=== PATIENT | male | born 1955 | race Two or more races ===

== ENCOUNTER → 2021-06-19 | Emergency (ER) | payer OTHER | END | disposition left against medical advice (07) | LOC: ER 13:35 | DX: R52 Pain, unspecified (principal); Z53.21 Procedure and treatment not carried out due to patient leaving prior to being seen by health care provider ==

== ENCOUNTER 2022-11-28 19:26 | Emergency (ER) | payer OTHER, MEDICAID ==
[~2022-11-28] VITALS: Ht 165.1 cm; Wt 62.0 kg
[2022-11-28 20:18] LABS: Basophils # (auto) 0.1 10 ^3/uL (0-0.2); Eosinophils # (auto) 0.2 10 ^3/uL (0-0.8); Eosinophils % (auto) 2.1 % (0.0-7.0); Hemoglobin 11.5 g/dL (13.5-17.5); Neutrophils # (auto) 4.6 10 ^3/uL (1.6-8.6)
[2022-11-28 20:20] LABS: Basophils % (auto) 1.3 % (0.0-2.0); Lymphocytes # (auto) 1.9 10 ^3/uL (0.4-5.4); Lymphocytes % (auto) 26.2 % (10.0-50.0); Mean Corpuscular Hemoglobin 27.3 pg (28.0-32.0); Mean Corpuscular Hgb Conc. 32.8 g/dL (32.0-36.0); Mean Corpuscular Volume 83.2 fL (80.0-100.0); Monocytes # (auto) 0.6 10 ^3/uL (0-1.3); Neutrophils % (auto) 62.4 % (37.0-80.0); Red Blood Cells 4.21 10^6/uL (4.5-5.90); Red Cell Distribution Width 16.8 % (11.8-14.3); White Blood Cell 7.4 10^3/uL (4.4-10.8)
[2022-11-28 20:38] LABS: Albumin 3.3 g/dL (3.4-5.0); Calcium 8.6 mg/dL (8.5-10.1); Potassium 4.3 mmol/L (3.5-5.1)
[2022-11-28 20:42] LABS: BUN/Creatinine Ratio 15.1 (10.0-20.0); Bilirubin, Total 0.4 mg/dL (0.2-1.0); Total Protein 6.7 g/dL (6.4-8.2)
[2022-11-29 04:50] VITALS: BP 201/93; PULSE 79; RESP 18; TEMP 98; O2SAT 98
[2022-11-29] MEDS ORDERED: DOXY1CAP57 PO (04:55)
[2022-11-29] MEDS ORDERED: cefTRIAXone SOD 1,000 MG VL IM ONE (05:00)
[2022-11-29] MEDS ORDERED: cloNIDine HCL 0.1 MG TAB PO ONE (05:00)
== END 2022-11-29 05:20 | disposition home or self-care (01) ==
LOC: ER 19:26
DX: L03.116 Cellulitis of left lower limb (principal); E11.65 Type 2 diabetes mellitus with hyperglycemia; D64.9 Anemia, unspecified; I10 Essential (primary) hypertension
CPT/HCPCS: 36415; 73700; 80053; 82962; 85025; 96372; 99285; J0696